=== PATIENT | male | born 1975 ===

== ENCOUNTER → 2018-10-06 15:19 | Outpatient (REF) | payer OTHER, SELFPAY ==
[2018-10-06 16:30] LABS: Hemoglobin A1C% w Est Avg Glu 5.7 % (4.0-6.0)
[2018-10-06 16:39] LABS: Troponin I 0.055 ng/mL (0.01-0.034)
== END ==
LOC: LAB 15:19
PROVIDERS: Visit Provider Family Medicine
DX: Z00.00 Encounter for general adult medical examination without abnormal findings (principal); R07.9 Chest pain, unspecified
CPT/HCPCS: 83036; 84484